=== PATIENT | female | born 1935 | race Caucasian/White ===

== ENCOUNTER 2019-07-13 19:16 | Observation (INO) ==
[2019-07-13] MEDS ORDERED: Ondansetron 4 MG/2 ML VIAL IVP ONE (19:27)
[2019-07-13 19:45] LABS: Basophils % 0.2 %; Eosinophils # 0.2 K/mcL (0.0-0.6); Eosinophils % 1.9 %; Hematocrit 43.5 % (35.3-44.9); Hemoglobin 14.3 g/dL (11.5-15.4); Immature Granulocytes % 0.4 % (0-4); Lymphocytes # 1.8 K/mcL (0.6-4.6); Lymphocytes % 19.6 %; Mean Corpuscular HGB Conc 32.9 g/dL (31.6-35.5); Mean Corpuscular Hemoglobin 33.1 pg (28.0-33.3); Mean Corpuscular Volume 100.7 fL (83.0-100.0); Mean Platelet Volume 10.7 fL (9.4-12.4); Monocytes # 0.8 K/mcL (0.0-1.3); Monocytes % 8.2 %; Neutrophils # 6.4 K/mcL (1.6-8.9); Platelet Count 294 K/mcL (140-400); Red Blood Count 4.32 M/mcL (3.82-4.97); Red Cell Distribution Width 14.8 % (11.5-14.5); Segmented Neutrophils % 69.7 %; White Blood Count 9.2 K/mcL (4.3-11.1)
[2019-07-13 19:54] LABS: INR 1.8; Prothrombin Time 20.6 Seconds (9.4-12.1)
[2019-07-13 19:57] LABS: Activated Partial Thrombo Time 32.6 Seconds (26.0-36.0)
[2019-07-13 20:04] LABS: BUN/Creatinine Ratio 28 (6-26); Blood Urea Nitrogen 26 mg/dL (8-23); Calcium 8.9 mg/dL (8.6-10.3); Carbon Dioxide 24 mEq/L (23-29); Chloride 107 mEq/L (98-107); Glucose 124 mg/dL (70-105); Osmolality,Calculated 300 (280-300); Potassium 3.7 mEq/L (3.5-5.1); Sodium 142 mEq/L (136-145); eGFR For African Americans > 60 (> 60); eGFR For Non-African Americans 58 (> 60)
[2019-07-13 20:05] LABS: Troponin I 0.03 ng/mL (< 0.04)
[2019-07-13] MEDS ORDERED: Furosemide 40 MG/4 ML VIAL IVP ONE (20:12)
[2019-07-13] MEDS ORDERED: Aspirin 81 MG TAB.CHEW PO ONE (20:23)
[2019-07-13] MEDS ORDERED: MOM Conc 10 ML UD.LIQ PO PRN (21:26)
[2019-07-13] MEDS ORDERED: Naloxone 0.4 MG/ML INJ IVP PRN (21:26)
[2019-07-13] MEDS ORDERED: *HR* Acetaminophen w/Cod 300-30 mg 1 TAB TABLET PO PRN (21:26)
[2019-07-13] MEDS ORDERED: Ondansetron ODT 4 MG TAB.RAPDIS SL PRN (21:26)
[2019-07-13] MEDS: Apixaban 5 MG TABLET PO SCH (21:59)
[2019-07-14] MEDS: Aspirin 81 MG TAB.CHEW PO SCH (09:16)
[2019-07-14] MEDS: Apixaban 5 MG TABLET PO SCH ×2 (09:16→19:55)
[2019-07-14] MEDS: DilTIAZem CD (24hr) 180 MG CAP.ER.24H PO SCH (09:16)
[2019-07-14] MEDS: Furosemide 20 MG/2 ML VIAL IVP SCH ×2 (09:16→19:55)
[2019-07-14 11:14] LABS: Hematocrit 42.7 % (35.3-44.9); Mean Corpuscular HGB Conc 32.8 g/dL (31.6-35.5); Mean Corpuscular Hemoglobin 33.4 pg (28.0-33.3); Mean Corpuscular Volume 101.9 fL (83.0-100.0); Mean Platelet Volume 10.5 fL (9.4-12.4); Platelet Count 267 K/mcL (140-400); Red Blood Count 4.19 M/mcL (3.82-4.97); Red Cell Distribution Width 14.8 % (11.5-14.5); White Blood Count 7.9 K/mcL (4.3-11.1)
[2019-07-14 11:29] LABS: Calcium 8.4 mg/dL (8.6-10.3); Potassium 3.5 mEq/L (3.5-5.1)
[2019-07-14] MEDS ORDERED: Perflutren Lipid Microsphere 1.3 ML in 0.9 % Sodium Chloride 8.7 ML IVP ONE (15:46)
[2019-07-14 17:13] LABS: Estimated Average Glucose 131 mg/dl; Hemoglobin A1C 6.2 %
[2019-07-15 06:56] VITALS: BP 151/82
[2019-07-15 08:05] LABS: Hematocrit 42.2 % (35.3-44.9); Mean Corpuscular HGB Conc 33.2 g/dL (31.6-35.5); Mean Corpuscular Hemoglobin 33.4 pg (28.0-33.3); Mean Corpuscular Volume 100.7 fL (83.0-100.0); Mean Platelet Volume 11.1 fL (9.4-12.4); Platelet Count 250 K/mcL (140-400); Red Blood Count 4.19 M/mcL (3.82-4.97); Red Cell Distribution Width 14.4 % (11.5-14.5); White Blood Count 8.8 K/mcL (4.3-11.1)
[2019-07-15] MEDS: Aspirin 81 MG TAB.CHEW PO SCH (08:20)
[2019-07-15 08:21] LABS: BUN/Creatinine Ratio 23 (6-26); Blood Urea Nitrogen 20 mg/dL (8-23); Calcium 8.5 mg/dL (8.6-10.3); Carbon Dioxide 28 mEq/L (23-29); Chloride 106 mEq/L (98-107); Glucose 98 mg/dL (70-105); Osmolality,Calculated 299 (280-300); Potassium 3.6 mEq/L (3.5-5.1); Sodium 143 mEq/L (136-145); eGFR For African Americans > 60 (> 60); eGFR For Non-African Americans > 60 (> 60)
[2019-07-15] MEDS: DilTIAZem CD (24hr) 180 MG CAP.ER.24H PO SCH (08:21)
[2019-07-15] MEDS: Apixaban 5 MG TABLET PO SCH (08:22)
[2019-07-15] MEDS ORDERED: Cyanocobalamin (B-12) 1,000 MCG TABLET PO SCH (09:30)
[2019-07-15] MEDS: Furosemide 20 MG/2 ML VIAL IVP SCH (12:58)
[2019-07-15] MEDS ORDERED: Furosemide 20 MG/2 ML VIAL IVP SCH (17:00)
== END 2019-07-15 14:50 | disposition other institution (70) ==
LOC: INPPIK 19:16 → EMEROOPIK 19:16 → INPPIK 21:25
PROVIDERS: ADMIT Family Medicine; ATTEND Family Medicine